=== PATIENT | female | born 1995 | race Caucasian/White ===

== ENCOUNTER 2019-07-07 16:34 | Emergency (ER) | payer OTHER ==
[~2019-07-07] VITALS: Ht 152.4 cm; Wt 62.6 kg
[2019-07-07 16:49] VITALS: BP 92/58
--- NOTE | 2019-07-07 16:54 | NUR ---
TO LOBBY AWATING BED IN ED
--- NOTE | 2019-07-07 17:57 | NUR ---
PT REMAINS IN LOBBY IN STABLE CONDITION. WILL CONTINUE TO ASSESS.
--- NOTE | 2019-07-07 20:23 | NUR ---
PT TO ER BED 7
--- NOTE | 2019-07-07 20:25 | NUR ---
23/ PRESENTED TO ED STATES SHE WAS SEEN IN URGENT CARE X 4 DAYS AGO; HAD POSITIVE UCG. REQUESTS ULTRASOUND TO CONFIRM. PT STATES LAST PERIOD WAS IN . DENIES VAG BLEEDING. -N/V/D. STATES SHE HAS PAIN IN RUQ PROVOKED BY MOVEMENT. STATES PAIN IS TOLERABLE "I JUST WANTED TO CHECK ON THE BABY". DENIES PAST MED HX DENIES RX DENIES ALLERGIES
[2019-07-07 22:00] VITALS: BP 101/68
--- NOTE | 2019-07-07 22:00 | NUR ---
DISCHARGE PAPERS GIVEN TO PT. VSS. INSTRUCTED TP F/U WITH PCP AND OBGYN. PT INSTRUCTED ON WHEN TO RETURN TO ER. PT VERBALLIZED UNDERSTANDING OF DC INSTRUCTIONS. ALL QUESTIONS ANSWERED.
== END 2019-07-07 22:00 | disposition home or self-care (01) ==
LOC: MED 16:34
DX: O26.899 Other specified pregnancy related conditions, unspecified trimester (principal); R10.13 Epigastric pain
CPT/HCPCS: 36415; 81002; 81025; 84702; 99283